=== PATIENT | male | born 1965 | race Caucasian/White ===

== ENCOUNTER 2018-03-06 11:34 | Emergency (ER) | payer OTHER ==
[~2018-03-06] VITALS: Ht 165.1 cm; Wt 54.5 kg
[2018-03-06 11:38] VITALS: BP 123/69
== END 2018-03-06 13:08 | disposition home or self-care (01) ==
LOC: ED 12:14
DX: R05 Cough (principal); J44.9 Chronic obstructive pulmonary disease, unspecified
CPT/HCPCS: 71046; 99284